=== PATIENT | female | born 1995 | race Caucasian/White ===

== ENCOUNTER 2016-06-24 23:08 | Emergency (ER) | payer OTHER ==
[~2016-06-24] VITALS: Ht 162.6 cm; Wt 88.5 kg
[~2016-06-24 23:08] MED LIST: CARAFATE100 MG/ML PO; PEN-VEE K,VEET500 MG PO; PEPCID40 MG PO; SERTRALINE HCL50 MG PO; STRATTERA10 MG PO; STRATTERA25 MG PO
[2016-06-25] MEDS ORDERED: ANUSOL-HC21 GM PR (00:30)
[2016-06-25] MEDS ORDERED: ULTRAM50 MG PO (00:30)
[2016-06-25 00:37] VITALS: BP 136/87
== END 2016-06-25 00:38 | disposition home or self-care (01) ==
LOC: EME 23:08
DX: K64.4 Residual hemorrhoidal skin tags (principal); F17.200 Nicotine dependence, unspecified, uncomplicated
CPT/HCPCS: 99281; 99284

== ENCOUNTER 2016-07-03 17:27 | Emergency (ER) | payer OTHER ==
[~2016-07-03] VITALS: Ht 162.6 cm; Wt 87.0 kg
[~2016-07-03 17:27] MED LIST changes: +ANUSOL-HC21 GM PR; +ULTRAM50 MG PO
[2016-07-03 17:28] VITALS: BP 130/66
== END 2016-07-03 19:03 | disposition home or self-care (01) ==
LOC: EME 17:27
DX: S61.216A Laceration without foreign body of right little finger without damage to nail, initial encounter (principal); W26.8XXA Contact with other sharp object(s), not elsewhere classified, initial encounter
CPT/HCPCS: 99281; 99284

== ENCOUNTER 2016-07-09 01:36 | Emergency (ER) | payer OTHER ==
[~2016-07-09] VITALS: Ht 162.6 cm; Wt 88.9 kg
[2016-07-09 03:23] VITALS: BP 119/77
== END 2016-07-09 03:30 | disposition home or self-care (01) ==
LOC: EME 01:36
DX: S80.01XA Contusion of right knee, initial encounter (principal); S93.402A Sprain of unspecified ligament of left ankle, initial encounter; W10.9XXA Fall (on) (from) unspecified stairs and steps, initial encounter
CPT/HCPCS: 73564; 73610; 99281; 99283

== ENCOUNTER 2016-07-16 05:49 | Emergency (ER) | payer OTHER ==
[~2016-07-16] VITALS: Ht 162.6 cm; Wt 87.7 kg
[2016-07-16] MEDS ORDERED: BUSPAR10 MG PO (06:09)
[2016-07-16] MEDS ORDERED: ESCITALOPRAM OX20 MG PO (06:09)
[2016-07-16 06:15] VITALS: BP 127/86
[2016-07-16 06:59] LABS: EOSINOPHIL (%) 6.8 % (0-5); EOSINOPHIL COUNT 0.5 K/uL (0-0.3); HEMATOCRIT 45.5 % (36.0-46.0); IMMATURE GRANULOCYTE (%) 0.4 % (0.0-0.7); INSTRUMENT ABS NEUTROPHIL CT 3.9 K/uL; LYMPHOCYTE COUNT 2.3 K/uL (1.0-2.8); MCH 31.1 PG (29.0-34.0); MCHC 34.1 G/DL (30.0-36.0); MCV 91.4 FL (83-99); MEAN PLAT.VOLUME 10.4 uM^3 (9.5-12.4); MONOCYTE (%) 5.4 % (3-12); MONOCYTE COUNT 0.4 K/uL (0-0.8); NEUTROPHIL (%) 54.4 % (45-76); NEUTROPHIL COUNT 3.9 K/uL (1.8-6.4); PLATELET COUNT 315 K/uL (156-360); RBC DIS.WIDTH-CV 12.4 % (11.8-14.6); RBC DIS.WIDTH-SD 40.8 % (39-53); RED BLOOD COUNT 4.98 M/uL (3.80-5.20); WHITE BLOOD COUNT 7.2 K/uL (4.1-10.2)
[2016-07-16 07:32] LABS: ANION GAP 14 MEQ/L (2-14); CHLORIDE 107 MEQ/L (99-109); DIRECT BILIRUBIN 0.1 mg/dL (0.0-0.3); SAMPLE HEMOLYSIS CHECK 1; SAMPLE ICTERIC CHECK 0; SAMPLE LIPEMIA CHECK 0; SODIUM 143 MEQ/L (136-147); TOTAL BILIRUBIN 0.4 MG/DL (0.0-1.0)
[2016-07-16 07:38] LABS: ALKALINE PHOSPHATASE 102 IU/L (3-129); GFR ESTIMATE (CALCULATED) > 59 mL/min/; GLUCOSE 92 mg/dL (70-99); SERUM ETHYL ALCOHOL 104 mg/dL; UREA NITROGEN (BUN) 10 mg/dL (9-23)
[2016-07-16 07:41] LABS: QUANTITATIVE HCG < 4.0 MIU/ML
[2016-07-16 07:50] LABS: SALICYLATE < 1.0 MG/DL (15-30)
== END 2016-07-16 10:17 | disposition left against medical advice (07) ==
LOC: EME 05:49
PROVIDERS: Emergency Medicine
DX: F41.9 Anxiety disorder, unspecified (principal); F32.9 Major depressive disorder, single episode, unspecified; T43.591A Poisoning by other antipsychotics and neuroleptics, accidental (unintentional), initial encounter; Z88.6 Allergy status to analgesic agent; Z88.8 Allergy status to other drugs, medicaments and biological substances; F17.200 Nicotine dependence, unspecified, uncomplicated
CPT/HCPCS: 80048; 80076; 81003; 84702; 85025; 93005; 99281; 99283; G0480

== ENCOUNTER 2016-08-05 15:55 | Emergency (ER) | payer OTHER ==
[~2016-08-05] VITALS: Ht 162.6 cm; Wt 86.3 kg
[~2016-08-05 15:55] MED LIST changes: +BUSPAR10 MG PO; +ESCITALOPRAM OX20 MG PO
[2016-08-05 16:02] VITALS: BP 134/83
[2016-08-05] MEDS ORDERED: NAPROSYN500 MG PO (17:11)
== END 2016-08-05 18:01 | disposition home or self-care (01) ==
LOC: EME 15:55
PROC: 2W3RX1Z Immobilization of Left Lower Leg using Splint (ICD-10-PCS; principal; 2016-08-05)
DX: S82.832A Other fracture of upper and lower end of left fibula, initial encounter for closed fracture (principal); W10.9XXA Fall (on) (from) unspecified stairs and steps, initial encounter; F17.200 Nicotine dependence, unspecified, uncomplicated
CPT/HCPCS: 73610; 99281; 99284

== ENCOUNTER 2016-08-14 03:36 | Emergency (ER) | payer OTHER ==
[~2016-08-14] VITALS: Ht 162.6 cm; Wt 89.8 kg
[~2016-08-14 03:36] MED LIST changes: +NAPROSYN500 MG PO
[2016-08-14 04:06] LABS: HEMATOCRIT 40.9 % (36.0-46.0); MCH 31.4 PG (29.0-34.0); MCV 89.7 FL (83-99); MEAN PLAT.VOLUME 10.5 uM^3 (9.5-12.4); PLATELET COUNT 300 K/uL (156-360); RBC DIS.WIDTH-CV 11.9 % (11.8-14.6); RBC DIS.WIDTH-SD 39.2 % (39-53); RED BLOOD COUNT 4.56 M/uL (3.80-5.20); WHITE BLOOD COUNT 7.3 K/uL (4.1-10.2)
[2016-08-14 04:16] LABS: CHLORIDE 110 mEq/L (99-109); POTASSIUM 3.6 mEq/L (3.7-5.4); SODIUM 142 mEq/L (136-147)
[2016-08-14 04:19] LABS: GLUCOSE 109 mg/dL (70-99)
[2016-08-14 04:20] LABS: ANION GAP 15 MEQ/L (2-14)
[2016-08-14 04:21] LABS: TOTAL BILIRUBIN 0.3 mg/dL (0.0-1.0)
[2016-08-14 04:22] LABS: SERUM ETHYL ALCOHOL 208 mg/dL
[2016-08-14 04:23] LABS: ALKALINE PHOSPHATASE 90 IU/L (3-129); GFR ESTIMATE (CALCULATED) > 59 mL/min/
[2016-08-14 04:24] LABS: UREA NITROGEN (BUN) 10 mg/dL (9-23)
[2016-08-14 04:26] LABS: SALICYLATE < 5.0 MG/DL (15-30)
[2016-08-14 04:32] LABS: QUANTITATIVE HCG < 4.0 MIU/ML
[2016-08-14 04:32] LABS: ADD MIUA? YES; BILIRUBIN NEGATIVE; BLOOD NEGATIVE; COLOR YELLOW ((YELLOW)); GLUCOSE (STRIP) NEGATIVE; KETONES NEGATIVE; LEUKOCYTES SMALL; NITRITE NEGATIVE; PROTEIN (STRIP) NEGATIVE; SPECIFIC GRAVITY 1.011 (1.000-1.030); UROBILINOGEN 0.2 MG/DL (0.2-1.0)
[2016-08-14 04:35] LABS: BACTERIA RARE /HPF; EPITHELIAL CELLS 1+ /HPF; MUCUS TRACE /LPF; RED BLOOD CELLS 0-5 /HPF (0-5); UCUL ADDED? NO; WHITE BLOOD CELLS 0-5 /HPF (0-5)
[2016-08-14 05:00] LABS: AMPHETAMINE NEGATIVE (500 ng/mL); BARBITURATES NEGATIVE (200 ng/mL); BENZODIAZEPINES NEGATIVE (150 ng/mL); COCAINE NEGATIVE (150 ng/mL); INTERNAL CONTROLS VALID? YES; METHADONE NEGATIVE (200 ng/mL); METHAMPHETAMINE NEGATIVE (500 ng/mL); OPIATES (MORPHINE) NEGATIVE (100 ng/mL); OXYCODONE NEGATIVE (100 ng/mL); PHENCYCLIDINE NEGATIVE (25 ng/mL); PROPOXYPHENE NEGATIVE (300 ng/mL); THC CANNABINOIDS NEGATIVE (50 ng/mL); TRICYCLIC ANTIDEPRESSANTS NEGATIVE (300 ng/mL)
[2016-08-14 08:56] VITALS: BP 127/83
== END 2016-08-14 08:57 | disposition home or self-care (01) ==
LOC: EME 03:36
PROVIDERS: Emergency Medicine
DX: F43.23 Adjustment disorder with mixed anxiety and depressed mood (principal); F32.9 Major depressive disorder, single episode, unspecified; F10.129 Alcohol abuse with intoxication, unspecified; Z04.6 Encounter for general psychiatric examination, requested by authority; Y90.7 Blood alcohol level of 200-239 mg/100 ml; F17.200 Nicotine dependence, unspecified, uncomplicated
CPT/HCPCS: 80053; 81003; 84702; 85027; 90837; 99281; 99284; G0480

== ENCOUNTER 2016-09-10 19:46 | Emergency (ER) | payer OTHER ==
[~2016-09-10] VITALS: Ht 162.6 cm; Wt 81.8 kg
[2016-09-10] MEDS ORDERED: MOTRIN800 MG PO (21:47)
[2016-09-10 22:01] VITALS: BP 146/75
== END 2016-09-10 22:01 | disposition home or self-care (01) ==
LOC: EME 19:46 → EXP 19:46
DX: S93.411A Sprain of calcaneofibular ligament of right ankle, initial encounter (principal); W10.9XXA Fall (on) (from) unspecified stairs and steps, initial encounter; J45.909 Unspecified asthma, uncomplicated; Z72.0 Tobacco use
CPT/HCPCS: 73610; 99281; 99284

== ENCOUNTER 2016-10-22 02:34 | Emergency (ER) | payer OTHER ==
[~2016-10-22] VITALS: Ht 162.6 cm; Wt 86.4 kg
[~2016-10-22 02:34] MED LIST changes: +MOTRIN800 MG PO
[2016-10-22 03:43] LABS: SERUM ETHYL ALCOHOL 211 mg/dL
[2016-10-22 03:52] LABS: QUANTITATIVE HCG < 4.0 MIU/ML
[2016-10-22 04:39] LABS: AMPHETAMINE NEGATIVE (500 ng/mL); BARBITURATES NEGATIVE (200 ng/mL); BENZODIAZEPINES NEGATIVE (150 ng/mL); COCAINE NEGATIVE (150 ng/mL); METHADONE NEGATIVE (200 ng/mL); METHAMPHETAMINE NEGATIVE (500 ng/mL); OPIATES (MORPHINE) NEGATIVE (100 ng/mL); OXYCODONE NEGATIVE (100 ng/mL); PHENCYCLIDINE NEGATIVE (25 ng/mL); PROPOXYPHENE NEGATIVE (300 ng/mL); THC CANNABINOIDS NEGATIVE (50 ng/mL); TRICYCLIC ANTIDEPRESSANTS NEGATIVE (300 ng/mL)
[2016-10-22 04:40] LABS: INTERNAL CONTROLS VALID? YES
[2016-10-22 09:10] VITALS: BP 116/86
== END 2016-10-22 09:34 | disposition home or self-care (01) ==
LOC: EME 02:34
DX: F31.81 Bipolar II disorder (principal); F10.129 Alcohol abuse with intoxication, unspecified; Y90.7 Blood alcohol level of 200-239 mg/100 ml; F41.9 Anxiety disorder, unspecified; J45.909 Unspecified asthma, uncomplicated; F17.200 Nicotine dependence, unspecified, uncomplicated
CPT/HCPCS: 80048; 84702; 85027; 90837; 99281; 99285; G0480

== ENCOUNTER 2016-11-16 00:23 | Emergency (ER) | payer OTHER ==
[~2016-11-16] VITALS: Ht 162.6 cm; Wt 88.7 kg
[2016-11-16 00:57] LABS: HEMATOCRIT 37.9 % (36.0-46.0); MCH 31.6 PG (29.0-34.0); MCHC 35.4 G/DL (30.0-36.0); MCV 89.4 FL (83-99); MEAN PLAT.VOLUME 10.5 uM^3 (9.5-12.4); PLATELET COUNT 278 K/uL (156-360); RBC DIS.WIDTH-CV 11.6 % (11.8-14.6); RBC DIS.WIDTH-SD 37.2 % (39-53); RED BLOOD COUNT 4.24 M/uL (3.80-5.20); WHITE BLOOD COUNT 7.1 K/uL (4.1-10.2)
[2016-11-16 01:33] LABS: ADD MIUA? YES; BILIRUBIN NEGATIVE; BLOOD MODERATE; COLOR YELLOW ((YELLOW)); GLUCOSE (STRIP) NEGATIVE; KETONES 5; LEUKOCYTES TRACE; NITRITE NEGATIVE; PROTEIN (STRIP) NEGATIVE; SPECIFIC GRAVITY 1.026 (1.000-1.030); UROBILINOGEN 0.2 MG/DL (0.2-1.0)
[2016-11-16 01:35] LABS: BACTERIA NONE SEEN /HPF; EPITHELIAL CELLS 1+ /HPF; MUCUS TRACE /LPF; RED BLOOD CELLS 0-5 /HPF (0-5); UCUL ADDED? NO; WHITE BLOOD CELLS 0-5 /HPF (0-5)
[2016-11-16 03:35] VITALS: BP 125/107
== END 2016-11-16 03:35 | disposition home or self-care (01) ==
LOC: EME 00:23
DX: O20.0 Threatened abortion (principal); O36.0110 Maternal care for anti-D [Rh] antibodies, first trimester, not applicable or unspecified; Z87.891 Personal history of nicotine dependence; Z3A.01 Less than 8 weeks gestation of pregnancy
CPT/HCPCS: 76801; 81003; 84702; 85027; 86850; 86900; 86901; 99281; 99284; J2790

== ENCOUNTER → 2017-04-26 | Outpatient (CLI) | payer OTHER ==
[~2017-04-26] VITALS: Ht 162.6 cm; Wt 89.0 kg
[~2017-04-26] MED LIST changes: +PRENATAL TABLE1 EAC3 PO; +PULMICORT FLEX90 MCG IH; +WELLBUTRIN SR150 MG PO
[2017-04-26 13:12] VITALS: BP 125/69
[2017-04-26 13:26] VITALS: BP 125/69
== END | disposition home or self-care (01) ==
LOC: IVINF 13:00
DX: Z34.80 Encounter for supervision of other normal pregnancy, unspecified trimester (principal); Z3A.00 Weeks of gestation of pregnancy not specified; Z67.91 Unspecified blood type, Rh negative
CPT/HCPCS: 96372; J2790

== ENCOUNTER 2017-07-21 07:03 | Inpatient (IN) | payer OTHER ==
[2017-07-21] VITALS (23 sets, daily range): BP systolic 104–175; BP diastolic 58–107
[~2017-07-21] VITALS: Ht 162.6 cm; Wt 92.0 kg
[2017-07-21 08:29] LABS: BASOPHIL (%) 0.3 % (0-1); EOSINOPHIL (%) 1.2 % (0-5); EOSINOPHIL COUNT 0.1 K/uL (0-0.3); HEMATOCRIT 32.3 % (36.0-46.0); HEMOGLOBIN 10.9 G/DL (11.9-15.5); IMMATURE GRANULOCYTE (%) 0.6 % (0.0-0.7); LYMPHOCYTE COUNT 2.1 K/uL (1.0-2.8); MCH 29.1 PG (29.0-34.0); MCHC 33.7 G/DL (30.0-36.0); MCV 86.1 FL (83-99); MONOCYTE (%) 7.8 % (3-12); MONOCYTE COUNT 0.8 K/uL (0-0.8); NEUTROPHIL (%) 68.1 % (45-76); NEUTROPHIL COUNT 6.6 K/uL (1.8-6.4); PLATELET COUNT 210 K/uL (156-360); RBC DIS.WIDTH-CV 14.2 % (11.8-14.6); RBC DIS.WIDTH-SD 43.7 % (39-53); RED BLOOD COUNT 3.75 M/uL (3.80-5.20); WHITE BLOOD COUNT 9.7 K/uL (4.1-10.2)
[2017-07-21 08:31] LABS: AMPHETAMINE NEGATIVE (500 ng/mL); BARBITURATES NEGATIVE (200 ng/mL); BENZODIAZEPINES NEGATIVE (150 ng/mL); BUPRENORPHINE NEGATIVE (10 ng/mL); COCAINE NEGATIVE (150 ng/mL); METHADONE NEGATIVE (200 ng/mL); METHAMPHETAMINE NEGATIVE (500 ng/mL); OPIATES (MORPHINE) NEGATIVE (100 ng/mL); OXYCODONE NEGATIVE (100 ng/mL); PHENCYCLIDINE NEGATIVE (25 ng/mL); PROPOXYPHENE NEGATIVE (300 ng/mL); THC CANNABINOIDS NEGATIVE (50 ng/mL); TRICYCLIC ANTIDEPRESSANTS NEGATIVE (300 ng/mL)
[2017-07-22] VITALS (7 sets, daily range): BP systolic 114–143; BP diastolic 53–86
[2017-07-22 05:38] LABS: BASOPHIL (%) 0.2 % (0-1); EOSINOPHIL (%) 0.1 % (0-5); HEMATOCRIT 27.7 % (36.0-46.0); HEMOGLOBIN 9.1 G/DL (11.9-15.5); IMMATURE GRANULOCYTE (%) 0.6 % (0.0-0.7); LYMPHOCYTE (%) 11.6 % (15-42); LYMPHOCYTE COUNT 1.4 K/uL (1.0-2.8); MCH 28.4 PG (29.0-34.0); MCHC 32.9 G/DL (30.0-36.0); MCV 86.6 FL (83-99); MONOCYTE COUNT 1.2 K/uL (0-0.8); NEUTROPHIL (%) 77.5 % (45-76); NEUTROPHIL COUNT 9.4 K/uL (1.8-6.4); PLATELET COUNT 182 K/uL (156-360); RBC DIS.WIDTH-SD 43.2 % (39-53); WHITE BLOOD COUNT 12.1 K/uL (4.1-10.2)
[2017-07-22] MEDS ORDERED: BUPROPION XL150 MG PO (08:13)
[2017-07-23 07:14] VITALS: BP 122/67
[2017-07-23] MEDS ORDERED: CHROMAGEN,1 CAPSULE PO (14:27)
[2017-07-23] MEDS ORDERED: IBUPROFEN800 MG PO (14:27)
[2017-07-23] MEDS ORDERED: HYDROCORTISONE30 G2 PR (14:32)
[2017-07-23 17:17] VITALS: BP 140/93
== END 2017-07-23 18:32 | disposition home or self-care (01) | DRG 775 ==
LOC: LDRP-OP → 2WEST 07:04 → LDRP-OP 09-15 14:20
PROVIDERS: Advanced Practice Midwife; Obstetrics & Gynecology
PROC: 10E0XZZ Delivery of Products of Conception, External Approach (ICD-10-PCS; principal; 2017-07-21)
PROC: 10D07Z6 Extraction of Products of Conception, Vacuum, Via Natural or Artificial Opening (ICD-10-PCS; 2017-07-21)
PROC: 0HQ9XZZ Repair Perineum Skin, External Approach (ICD-10-PCS; 2017-07-21)
PROC: 10907ZC Drainage of Amniotic Fluid, Therapeutic from Products of Conception, Via Natural or Artificial Opening (ICD-10-PCS; 2017-07-21)
PROC: 3E0S3BZ Introduction of Anesthetic Agent into Epidural Space, Percutaneous Approach (ICD-10-PCS; 2017-07-21)
PROC: 00HU33Z Insertion of Infusion Device into Spinal Canal, Percutaneous Approach (ICD-10-PCS; 2017-07-21)
DX: O99.214 Obesity complicating childbirth (principal); D62 Acute posthemorrhagic anemia; F33.9 Major depressive disorder, recurrent, unspecified; O36.0931 Maternal care for other rhesus isoimmunization, third trimester, fetus 1; Z3A.40 40 weeks gestation of pregnancy; Z37.0 Single live birth; O36.8131 Decreased fetal movements, third trimester, fetus 1; E66.9 Obesity, unspecified; F41.9 Anxiety disorder, unspecified; O70.0 First degree perineal laceration during delivery; O77.0 Labor and delivery complicated by meconium in amniotic fluid; O99.02 Anemia complicating childbirth; O99.344 Other mental disorders complicating childbirth; O76 Abnormality in fetal heart rate and rhythm complicating labor and delivery; O12.04 Gestational edema, complicating childbirth; O22.43 Hemorrhoids in pregnancy, third trimester; D50.9 Iron deficiency anemia, unspecified; O69.81X1 Labor and delivery complicated by cord around neck, without compression, fetus 1; Z87.891 Personal history of nicotine dependence; Z81.1 Family history of alcohol abuse and dependence
CPT/HCPCS: 83030; 85025; 86850; 86900; 86901; 88307; 94760; 99202; C1755; J0595; J2790; J3010; J7120